=== PATIENT | male | born 1950 | race Hispanic/Latino ===

== ENCOUNTER → 2020-03-07 | Outpatient (CLI) | payer OTHER ==
[~2020-03-07] MED LIST: COVID-19 VACC, MRNA(MODERNA)/PF 100 MCG/0.5 ML VIAL IM ONE
== END | disposition home or self-care (01) ==
LOC: VACCPMC 09:00
DX: Z23 Encounter for immunization (principal); Z20.822 Contact with and (suspected) exposure to COVID-19

== ENCOUNTER → 2020-04-05 | Outpatient (CLI) | payer OTHER | END | DRG 951 | LOC: VACCPMC 08:35 | DX: Z23 Encounter for immunization (principal); Z20.822 Contact with and (suspected) exposure to COVID-19 | CPT/HCPCS: 0012A; 91301 ==

== ENCOUNTER → 2022-05-22 | Day surgery (SDC) | payer MEDICARE ==
[2022-05-17 16:22] LABS: BASOPHILS # (AUTO) 0.1 (0.0-0.1); BASOPHILS % 0.9 % (0.0-1.0); EOSINOPHILS # (AUTO) 0.2 (0.0-0.4); EOSINOPHILS % 3.8 % (0.0-6.0); HEMOGLOBIN 12.7 g/dL (14.0-18.0); LYMPHOCYTES # (AUTO) 1.3 (1.0-3.2); MEAN CORPUSCULAR HEMOGLOBIN 32.2 pg (28-32); MEAN CORPUSCULAR HGB CONC 34.3 g/dL (31-35); MEAN CORPUSCULAR VOLUME 93.9 fL (81-99); MONOCYTES # (AUTO) 0.7 (0.2-0.8); MONOCYTES % 11.9 % (4.4-11.3); NEUTROPHILS # (AUTO) 3.5 (2.1-6.9); NEUTROPHILS % 60.1 % (38.7-80.0); PLATELET COUNT 295 x10e3/uL (140-360); RED BLOOD COUNT 3.94 x10e6/uL (4.3-5.7); RED CELL DISTRIBUTION WIDTH 12.8 % (11.7-14.4)
[~2022-05-22] MED LIST changes: +AMLODIPINE BESYL5 MG PO; -COVID-19 VACC, MRNA(MODERNA)/PF 100 MCG/0.5 ML VIAL IM ONE; +FENTANYL CITRATE/PF 100MCG/2 ML INJ ONE; +FERROUS SULFAT325 MG PO; +HYOSCYAMINE SULFATE 0.5 MG/ML INJ ONE; +IBUPROFEN800 MG PO; +LIDOCAINE HCL 2% LOCAL INJ 5 ML SDV VIAL INJ ONE; +POVIDONE IODINE 0.05% 0.05 % ML PO ONE; +PROPOFOL IV EMULSION 10 MG/ML 20 ML VIAL ONE; +PROPOFOL IV EMULSION 10 MG/ML 50 ML VIAL IV ONE; +PROPOFOL IV EMULSION 50 ML IV ONE; +SERTRALINE HCL50 MG PO
[2022-05-22 13:08] VITALS: BP 148/84
== END | disposition home or self-care (01) ==
LOC: OR 09:51
PROVIDERS: ATTEND Internal Medicine Gastroenterology
DX: D64.89 Other specified anemias (principal); D12.2 Benign neoplasm of ascending colon; D12.3 Benign neoplasm of transverse colon; K29.50 Unspecified chronic gastritis without bleeding; K29.80 Duodenitis without bleeding; K58.9 Irritable bowel syndrome, unspecified; K22.89 Other specified disease of esophagus; K20.90 Esophagitis, unspecified without bleeding; K59.09 Other constipation; K44.9 Diaphragmatic hernia without obstruction or gangrene; K57.30 Diverticulosis of large intestine without perforation or abscess without bleeding; K64.8 Other hemorrhoids; Z71.3 Dietary counseling and surveillance; I10 Essential (primary) hypertension; Z71.89 Other specified counseling; F17.210 Nicotine dependence, cigarettes, uncomplicated; Z71.6 Tobacco abuse counseling; Z01.810 Encounter for preprocedural cardiovascular examination; Z01.812 Encounter for preprocedural laboratory examination; Z79.899 Other long term (current) drug therapy; Z86.19 Personal history of other infectious and parasitic diseases
CPT/HCPCS: 36415; 43239; 45385; 85025; 93005; C9113; J1980; J2001; J2704 ×2; J3010